=== PATIENT | female | born 1945 | race Asian ===

== ENCOUNTER 2016-06-22 08:18 | Outpatient (CLI) | payer OTHER ==
[2016-06-22 08:45] LABS: PLATELET COUNT 304 K/uL (152-353)
[2016-06-22 08:57] LABS: POTASSIUM 3.4 mmol/L (3.6-5.2); SODIUM 137 mmol/L (136-145)
== END 2016-06-22 11:00 | disposition home or self-care (01) ==
LOC: LABW 08:18
PROVIDERS: Internal Medicine
DX: I10 Essential (primary) hypertension (principal); E03.8 Other specified hypothyroidism
CPT/HCPCS: 36415; 80053; 80061; 81000; 84439; 84443; 85027

== ENCOUNTER 2016-10-12 07:38 | Outpatient (CLI) | payer OTHER | END 2016-10-12 08:40 | disposition home or self-care (01) | LOC: LABW 07:38 | DX: E87.3 Alkalosis (principal); R73.9 Hyperglycemia, unspecified | CPT/HCPCS: 82088; 82951; 82952; 83036; 84244 ==

== ENCOUNTER 2018-05-03 08:37 | Outpatient (CLI) | payer OTHER | END 2018-05-03 23:15 | disposition home or self-care (01) | LOC: US 08:37 | DX: R31.0 Gross hematuria (principal) ==

== ENCOUNTER 2018-09-13 08:03 | Outpatient (CLI) | payer OTHER ==
[2018-09-13 08:23] LABS: PLATELET COUNT 326 K/uL (152-353)
== END 2018-09-13 22:14 | disposition home or self-care (01) ==
LOC: LABW 08:03
PROVIDERS: Internal Medicine
DX: I10 Essential (primary) hypertension (principal); D50.8 Other iron deficiency anemias; E03.8 Other specified hypothyroidism; E55.9 Vitamin D deficiency, unspecified; R82.998 Other abnormal findings in urine
CPT/HCPCS: 36415; 80053; 80061; 81000; 82306; 83540; 84439; 84443; 85027; 87077; 87086; 87088; 87186

== ENCOUNTER 2018-09-28 11:27 | Outpatient (CLI) | payer OTHER | END 2018-09-28 23:59 | disposition home or self-care (01) | LOC: RAD 11:27 | DX: Z13.820 Encounter for screening for osteoporosis (principal); N95.8 Other specified menopausal and perimenopausal disorders ==

== ENCOUNTER 2018-12-20 08:53 | Outpatient (CLI) | payer OTHER ==
[2018-12-20 09:15] LABS: PLATELET COUNT 268 K/uL (152-353)
[2018-12-20 09:33] LABS: POTASSIUM 3.8 mmol/L (3.6-5.2)
== END 2018-12-20 21:36 | disposition home or self-care (01) ==
LOC: LABW 08:53
PROVIDERS: Internal Medicine
DX: Z00.00 Encounter for general adult medical examination without abnormal findings (principal); I10 Essential (primary) hypertension; E03.8 Other specified hypothyroidism; R82.998 Other abnormal findings in urine
CPT/HCPCS: 36415; 80053; 80061; 81000; 84439; 84443; 85027; 87086; 87088

== ENCOUNTER 2020-05-08 15:57 | Outpatient (CLI) | payer OTHER ==
[2020-05-08 16:19] LABS: PLATELET COUNT 286 K/uL (152-353)
[2020-05-08 17:05] LABS: POTASSIUM 4.1 mmol/L (3.6-5.2)
== END 2020-05-08 19:37 | disposition home or self-care (01) ==
LOC: LAB 15:57
PROVIDERS: ATTEND Internal Medicine
DX: Z00.00 Encounter for general adult medical examination without abnormal findings (principal); Z13.820 Encounter for screening for osteoporosis; Z79.899 Other long term (current) drug therapy
CPT/HCPCS: 80053; 80061; 81000; 82306; 84439; 84443; 85008; 85027

== ENCOUNTER 2021-04-28 15:11 | Outpatient (CLI) | payer OTHER | END 2021-04-28 19:05 | disposition home or self-care (01) | LOC: LAB 15:11 | PROVIDERS: ATTEND Internal Medicine | DX: N39.0 Urinary tract infection, site not specified (principal) | CPT/HCPCS: 87086; 87088 ==

== ENCOUNTER 2021-04-29 15:06 | Outpatient (CLI) | payer OTHER ==
[2021-04-29 15:26] LABS: PLATELET COUNT 306 K/uL (152-353)
== END 2021-04-29 19:04 | disposition home or self-care (01) ==
LOC: LAB 15:06
PROVIDERS: ATTEND Internal Medicine
DX: R55 Syncope and collapse (principal); E03.8 Other specified hypothyroidism; I10 Essential (primary) hypertension
CPT/HCPCS: 80053; 80061; 84439; 84443; 85027

== ENCOUNTER 2021-09-23 12:22 | Outpatient (CLI) | payer OTHER | END 2021-09-23 19:25 | disposition home or self-care (01) | LOC: LAB 12:22 | PROVIDERS: ATTEND Internal Medicine | DX: E03.8 Other specified hypothyroidism (principal) | CPT/HCPCS: 84439; 84443 ==

== ENCOUNTER 2022-03-03 15:15 | Outpatient (CLI) | payer OTHER ==
[2022-03-03 15:33] LABS: PLATELET COUNT 283 K/uL (152-353)
[2022-03-03 16:10] LABS: POTASSIUM 3.6 mmol/L (3.6-5.2)
== END 2022-03-03 19:32 | disposition home or self-care (01) ==
LOC: LAB 15:15
PROVIDERS: ATTEND Internal Medicine
DX: E03.8 Other specified hypothyroidism (principal); I10 Essential (primary) hypertension; D50.8 Other iron deficiency anemias; E55.9 Vitamin D deficiency, unspecified; R82.998 Other abnormal findings in urine
CPT/HCPCS: 80053; 80061; 81000; 82306; 83540; 84439; 84443; 85027; 87086; 87088

== ENCOUNTER 2022-06-04 11:57 | Outpatient (CLI) | payer OTHER ==
[2022-06-04 12:39] LABS: PLATELET COUNT 280 K/uL (152-353)
== END 2022-06-04 19:16 | disposition home or self-care (01) ==
LOC: LAB 11:57
PROVIDERS: ATTEND Internal Medicine
DX: E03.8 Other specified hypothyroidism (principal); D50.8 Other iron deficiency anemias; I10 Essential (primary) hypertension
CPT/HCPCS: 80061; 84439; 84443; 85027

== ENCOUNTER 2022-07-01 09:58 | Outpatient (CLI) | payer OTHER | END 2022-07-01 20:50 | disposition home or self-care (01) | LOC: MRI 09:58 | PROVIDERS: ATTEND Psychiatry & Neurology Neurology | DX: R41.82 Altered mental status, unspecified (principal) ==

== ENCOUNTER 2022-09-16 12:47 | Outpatient (CLI) | payer OTHER ==
[2022-09-16 13:30] LABS: POTASSIUM 3.4 mmol/L (3.6-5.2)
== END 2022-09-16 21:52 | disposition home or self-care (01) ==
LOC: LAB 12:47
PROVIDERS: ATTEND Internal Medicine
DX: E03.8 Other specified hypothyroidism (principal); I10 Essential (primary) hypertension
CPT/HCPCS: 80053; 80061; 84439; 84443

== ENCOUNTER 2022-11-26 10:43 | Outpatient (CLI) | payer OTHER | END 2022-11-26 19:49 | disposition home or self-care (01) | LOC: LABW 10:43 | PROVIDERS: ATTEND Psychiatry & Neurology Neurology | DX: R41.82 Altered mental status, unspecified (principal) | CPT/HCPCS: 36415; 82607; 82746; 85652; 86038 ==